=== PATIENT | female | born 1995 | race Caucasian/White ===

== ENCOUNTER → 2018-02-14 | Outpatient (CLI) | payer OTHER ==
[~2018-02-14] MED LIST: ISOVUE-370 50ML VIAL IV ONE
== END | disposition home or self-care (01) ==
LOC: RAH 09:39
PROVIDERS: ATTEND Preventive Medicine Preventive Medicine/Occupational Environmental Medicine
DX: R51 Headache (principal); R55 Syncope and collapse
CPT/HCPCS: 70470; Q9967

== ENCOUNTER 2020-02-05 23:28 | Emergency (ER) | payer OTHER ==
[2020-02-06] MEDS ORDERED: KETOROLAC TROMETHAMINE 60 MG/2 ML VIAL ONE (00:35)
== END 2020-02-06 02:06 | disposition home or self-care (01) ==
LOC: EDH 23:28
DX: M54.5 Low back pain (principal); M62.838 Other muscle spasm; Z98.890 Other specified postprocedural states
CPT/HCPCS: 72100; 96372; 99283; J1885

== ENCOUNTER → 2025-06-11 | Outpatient (CLI) | payer OTHER ==
[~2025-06-11] MED LIST changes: +GADOTERATE MEGLUMINE 10 MMOL/20 ML VIAL IV ONE; -ISOVUE-370 50ML VIAL IV ONE
--- NOTE | 2025-06-15 16:33 | HMCIMG ---
INDICATION: Galactorrhea TECHNIQUE Precontrast axial T1 and axial T2 fat saturation sequences were obtained. Dynamic postcontrast axial imaging were obtained. Subtraction images and MIP reconstructions were generated. IV Contrast: 20 mL Clariscan COMPARISON None FINDINGS Amount of fibroglandular tissue: Heterogeneous fibroglandular tissue. Background parenchymal enhancement: Minimal. Right breast: No suspicious mass or non-mass enhancement. Left breast: No suspicious mass or non-mass enhancement. Lymph nodes: Unremarkable. Other tissues: Unremarkable. IMPRESSION No evidence of malignancy. No duct dilation. BI-RADS 1: Negative. Recommendation: Routine annual screening mammography beginning at age 40. /Russell
== END | disposition home or self-care (01) ==
LOC: RAH 07:38
PROVIDERS: ATTEND Student in an Organized Health Care Education/Training Program
DX: O92.6 Galactorrhea (principal); R92.333 Mammographic heterogeneous density, bilateral breasts; R92.323 Mammographic fibroglandular density, bilateral breasts
CPT/HCPCS: C8908; A9575; 77049